=== PATIENT | female | born 1965 | race Caucasian/White ===

== ENCOUNTER 2016-09-07 11:12 | Emergency (ER) | payer SELFPAY ==
[~2016-09-07] VITALS: Ht 175.3 cm; Wt 68.0 kg
[2016-09-07 11:52] VITALS: BP 135/89
== END 2016-09-07 12:11 | disposition home or self-care (01) ==
LOC: ER 11:15
DX: M25.562 Pain in left knee (principal); N83.209 Unspecified ovarian cyst, unspecified side
CPT/HCPCS: 99283; A4606; Z7610

== ENCOUNTER 2017-02-26 19:02 | Emergency (ER) | payer SELFPAY ==
--- NOTE | 2017-02-26 19:29 | NUR ---
LEFT IN THE MIDDLE OF TRIAGE AND STATED "IF I FEEL WORSE I WILL COME BACK"
== END 2017-02-26 19:30 | disposition left against medical advice (07) ==
LOC: ER 19:03
DX: Z53.21 Procedure and treatment not carried out due to patient leaving prior to being seen by health care provider (principal)

== ENCOUNTER 2017-12-23 10:26 | Emergency (ER) | payer SELFPAY ==
[~2017-12-23] VITALS: Ht 175.3 cm; Wt 73.9 kg
[2017-12-23 10:32] VITALS: BP 129/89
[2017-12-23] MEDS ORDERED: HYDROCODONE/APAP 5/325MG 1 EACH TABLET PO ONE (11:30)
[2017-12-23] MEDS ORDERED: HYDROCODONE/APAP 5/325MG 1 EACH TABLET ONE (11:32)
== END 2017-12-23 12:54 | disposition home or self-care (01) ==
LOC: ER 10:28
DX: S42.402A Unspecified fracture of lower end of left humerus, initial encounter for closed fracture (principal); N83.201 Unspecified ovarian cyst, right side; Z90.89 Acquired absence of other organs; W18.39XA Other fall on same level, initial encounter; Y93.21 Activity, ice skating; Y92.89 Other specified places as the place of occurrence of the external cause; Y99.8 Other external cause status
CPT/HCPCS: 73080-TC; A4606; Z7610

== ENCOUNTER 2018-04-24 10:04 | Emergency (ER) | payer SELFPAY ==
[~2018-04-24] VITALS: Ht 175.3 cm; Wt 75.3 kg
[2018-04-24 10:29] VITALS: BP 159/92
== END 2018-04-24 10:56 | disposition home or self-care (01) ==
LOC: ER 10:05
DX: M25.461 Effusion, right knee (principal); Z90.89 Acquired absence of other organs; Z98.890 Other specified postprocedural states; W18.30XA Fall on same level, unspecified, initial encounter; Y93.89 Activity, other specified; Y92.89 Other specified places as the place of occurrence of the external cause; Y99.8 Other external cause status
CPT/HCPCS: 29505; 99283; A4606; Z7610

== ENCOUNTER 2023-11-16 20:21 | Emergency (ER) | payer OTHER ==
[~2023-11-16] VITALS: Ht 177.8 cm; Wt 81.2 kg
[2023-11-16 21:45] VITALS: BP 149/88; TEMP 98.5; O2SAT 99
[2023-11-16] MEDS ORDERED: TETRAcaine 5 ML BOTTLE ONE (22:47)
[2023-11-16] MEDS ORDERED: FLUORESCEIN SODIUM OPHTH 1 EA STRIP ONE (22:47)
[2023-11-16] MEDS ORDERED: NAPR-1164 PO (23:52)
[2023-11-16] MEDS ORDERED: POLY10DR3 EACHEYE (23:52)
[2023-11-16] MEDS ORDERED: HYDROCODONE/APAP 5/325MG TABLET ONE (23:54)
[2023-11-16] MEDS: HYDROCODONE/APAP 5/325MG TABLET PO ONE (23:57)
== END 2023-11-17 00:03 | disposition home or self-care (01) ==
LOC: ER 20:22
DX: S05.02XA Injury of conjunctiva and corneal abrasion without foreign body, left eye, initial encounter (principal); F32.A Depression, unspecified; Z90.89 Acquired absence of other organs; W22.8XXA Striking against or struck by other objects, initial encounter; Y93.89 Activity, other specified; Y92.89 Other specified places as the place of occurrence of the external cause; Y99.8 Other external cause status

== ENCOUNTER 2025-07-14 16:59 | Emergency (ER) | payer OTHER ==
[~2025-07-14] VITALS: Ht 175.3 cm; Wt 65.8 kg
[~2025-07-14 16:59] MED LIST: NAPR-1164 PO; POLY10DR3 EACHEYE
[2025-07-14 17:43] VITALS: BP 117/57; TEMP 98
[2025-07-14] MEDS ORDERED: DOXY100C2 PO (18:20)
[2025-07-14] MEDS ORDERED: AMOX-430 PO (18:20)
[2025-07-14] MEDS ORDERED: TDAP [DIPH/PERTUSSIS/TET] 0.5 ML VIAL IM ONE (18:25)
[2025-07-14] MEDS ORDERED: HYDROCODONE/APAP 5/325MG TABLET ONE (18:27)
[2025-07-14] MEDS ORDERED: AMOX/CLAVULANATE 875 MG TABLET ONE (18:27)
[2025-07-14] MEDS: AMOX/CLAVULANATE 875 MG TABLET PO ONE (18:30)
[2025-07-14 18:37] VITALS: O2SAT 97
[2025-07-14] MEDS: TDAP [DIPH/PERTUSSIS/TET] 0.5 ML VIAL IM ONE (18:37)
[2025-07-14] MEDS: MUPIROCIN OINT 2% 22 GM TUBE TP ONE (18:41)
[2025-07-14] MEDS: HYDROCODONE/APAP 5/325MG TABLET PO ONE (18:41)
== END 2025-07-14 18:57 | disposition home or self-care (01) ==
LOC: ER 17:05
DX: S61.432A Puncture wound without foreign body of left hand, initial encounter (principal); Z90.49 Acquired absence of other specified parts of digestive tract; W54.0XXA Bitten by dog, initial encounter; Y93.89 Activity, other specified; Y92.89 Other specified places as the place of occurrence of the external cause; Y99.9 Unspecified external cause status
CPT/HCPCS: 73130-TC; 90715